=== PATIENT | male | born 1960 | race Caucasian/White ===

== ENCOUNTER → 2016-10-03 | Outpatient (CLI) | payer OTHER ==
[~2016-10-03] MED LIST: AMLO10TA2 PO; ASPI-621 PO; CALCIUM W/ VIT D PO; LOSA100T6 PO; MULT-412 PO; OMEP-110 PO
[2016-10-03 12:44] LABS: BLOOD UREA NITROGEN 17 mg/dL (7-18)
[2016-10-03 12:48] LABS: ASPARTATE AMINO TRANSFERASE 148 U/L (15-37)
== END | disposition home or self-care (01) ==
LOC: STAR 11:08
PROVIDERS: ATTEND Orthopaedic Surgery
DX: Z01.812 Encounter for preprocedural laboratory examination (principal); M76.71 Peroneal tendinitis, right leg; M20.11 Hallux valgus (acquired), right foot; M20.41 Other hammer toe(s) (acquired), right foot; K21.9 Gastro-esophageal reflux disease without esophagitis
CPT/HCPCS: 36415; 80053

== ENCOUNTER 2016-10-10 10:33 | Day surgery (SDC) | payer OTHER ==
[~2016-10-10] VITALS: Ht 185.4 cm; Wt 107.0 kg
[2016-10-10 11:07] VITALS: BP 136/98
[2016-10-10] MEDS ORDERED: MIDAZOLAM 1 MG/ML, 2ML ONE (11:10)
[2016-10-10] MEDS ORDERED: FENTANYL PF 100 MCG/2ML ONE ×2 (11:10→14:01)
[2016-10-10] MEDS ORDERED: LACTATED RINGERS 1,000 ML IV SCH (11:17)
[2016-10-10] MEDS ORDERED: LIDOCAINE 1%, 2ML SQ PRN (11:30)
[2016-10-10] MEDS ORDERED: ROPIvacaine/PF 0.5%, 30 ML ONE (11:50)
[2016-10-10] MEDS ORDERED: PROPOFOL 10 MG/ML, 20ML ONE (12:31)
[2016-10-10] MEDS ORDERED: EPHEDRINE 50 MG/ML, 1ML ONE (12:31)
[2016-10-10] MEDS ORDERED: CEFAZOLIN 1,000 MG ONE (12:31)
[2016-10-10] MEDS ORDERED: ROCURONIUM 10 MG/ML ONE (12:31)
[2016-10-10] MEDS ORDERED: ONDANSETRON 2MG/ML, 2ML ONE (12:31)
[2016-10-10] MEDS ORDERED: DEXAMETHASONE 4 MG/ML, 1ML ONE (12:31)
[2016-10-10] MEDS ORDERED: SUCCINYLCHOLINE 20 MG/ML, 10ML ONE (12:31)
[2016-10-10] MEDS ORDERED: PHENYLEPHRINE 10 MG/ML ONE (12:31)
[2016-10-10] MEDS ORDERED: KETAMINE 10 MG/ML, 20ML ONE (13:16)
[2016-10-10] MEDS ORDERED: PROMETHAZINE 25 MG/ML, 1ML IV PRN (14:00)
[2016-10-10] MEDS ORDERED: HYDROmorphone 1 MG/ML, 1ML IV PRN (14:00)
[2016-10-10] MEDS ORDERED: FENTANYL PF 100 MCG/2ML IV PRN (14:00)
[2016-10-10] MEDS ORDERED: OXYcodone 5 MG/5 ML ORAL.SOL UDC PO PRN (14:00)
[2016-10-10] MEDS ORDERED: ACETAMINOPHEN 325 MG TABLET PO PRN (14:00)
[2016-10-10] MEDS ORDERED: ACETAMINOPHEN 650 MG/20.3 ML UDC ONE (15:51)
[2016-10-10] MEDS ORDERED: OXYcodone 5 MG/5 ML ORAL.SOL UDC ONE (15:51)
== END 2016-10-10 17:45 ==
LOC: OUT 10:33
PROVIDERS: ATTEND Orthopaedic Surgery
DX: M20.11 Hallux valgus (acquired), right foot (principal); M25.371 Other instability, right ankle; M77.41 Metatarsalgia, right foot; M20.41 Other hammer toe(s) (acquired), right foot; K21.9 Gastro-esophageal reflux disease without esophagitis; Z88.1 Allergy status to other antibiotic agents; Z79.82 Long term (current) use of aspirin; Z72.89 Other problems related to lifestyle; Z87.891 Personal history of nicotine dependence; Z82.49 Family history of ischemic heart disease and other diseases of the circulatory system
CPT/HCPCS: 27698; 28285; 28296; 28308; 73630; 76001; C1713; J0330; J0690; J1100; J2250; J2370; J2405; J2704; J2795; J3010; J3490; J7120